=== PATIENT | male | born 1950 | race Caucasian/White ===

== ENCOUNTER 2017-05-05 12:54 | Inpatient (IN) | payer MEDICARE ==
[~2017-05-05] VITALS: Ht 177.8 cm; Wt 85.4 kg
[~2017-05-05 12:54] MED LIST: CEFT250T8; LORT7.5T3; NO CURRENT MEDS
[2017-05-09] MEDS ORDERED: METF500T PO ×2 (13:36)
[2017-05-09] MEDS ORDERED: METF1000 PO (13:36)
[2017-05-23] MEDS ORDERED: HYDR-3288 PO (06:59)
[2017-05-23] MEDS ORDERED: ZOLPIDEM TARTRATE 5 MG TAB PO PRN (07:00)
[2017-05-23] MEDS ORDERED: HYDROmorphone HCL PF 2 MG/ML VIAL IV PRN (07:00)
[2017-05-23] MEDS ORDERED: ENOX40P SQ (07:00)
[2017-05-23] MEDS ORDERED: diphenhydrAMINE HCL 50 MG/ML VIAL IV PRN (07:00)
[2017-05-23] MEDS ORDERED: SODIUM CHLORIDE 0.9% FLUSH 5 ML FLUSH IVF PRN (07:00)
[2017-05-23] MEDS ORDERED: Post-op Orders (for Pharmacy) MISC XX ONE (07:00)
[2017-05-23] MEDS ORDERED: BISACODYL 10 MG SUPP RECTAL PRN (07:00)
[2017-05-23] MEDS ORDERED: ACETAMINOPHEN/HYDROcodone 325 MG/7.5 MG TAB PO PRN (07:00)
[2017-05-23] MEDS ORDERED: ONDANSETRON HCL 4 MG/2 ML VIAL IVP PRN (07:00)
[2017-05-23] MEDS ORDERED: ASPI81CH37 CHEW (07:01)
[2017-05-23] MEDS ORDERED: METF500T PO ×2 (07:29)
[2017-05-23] MEDS ORDERED: LACTATED RINGER'S 1000 ML IV PRN (07:30)
[2017-05-23] MEDS ORDERED: POVIDONE IODINE 5% (ANTISEPSIS KIT) 4 APPLICATIONS EACH NARE PRN (07:30)
[2017-05-23] MEDS ORDERED: SODIUM CHLORID 0.9% 500 ML IV PRN (07:30)
[2017-05-23] MEDS ORDERED: CHLORHEXIDINE GLUCONATE 2 % 1 PACK (2 CLOTHS) TOPICAL PRN (07:30)
[2017-05-23] MEDS ORDERED: INSULIN HUMAN REGULAR 1,000 UNITS/10 ML VIAL SQ PRN (07:30)
[2017-05-23] MEDS ORDERED: DEXAMETHASONE SOD PHOS 4 MG/ML VIAL ONE (07:38)
[2017-05-23] MEDS ORDERED: VANCOMYCIN HCL 1000 MG VIAL ONE (07:39)
[2017-05-23] MEDS ORDERED: SODIUM CHLOR 0.9% 250 ML INJ 250 ML ONE (07:40)
[2017-05-23] MEDS ORDERED: DEXAMETHASONE SOD PHOS 20 MG/5 ML VIAL ONE (07:41)
[2017-05-23] MEDS ORDERED: CHLORHEXIDINE GLUCONATE 4% SOLN 120 ML BTL TOPICAL SCH (07:45)
[2017-05-23] MEDS ORDERED: ceFAZolin 2 GM PREMIX 50 ML IV SCH (07:45)
[2017-05-23] MEDS ORDERED: POVIDONE IODINE 7.5% SCRUB 118 ML BOTTLE TOPICAL SCH (07:45)
[2017-05-23] MEDS ORDERED: VANCOMYCIN 1000 MG/NS 250 ML (for <70 kg) IV SCH ×2 (07:45)
[2017-05-23] MEDS ORDERED: DEXAMETHASONE SOD PHOS 20 MG/5 ML VIAL IV ONE (08:00)
[2017-05-23] MEDS ORDERED: TRANEXAMIC PERI-ARTICULAR 3,000 MG/NS 100 ML P-ARTICULR ONE ×2 (08:00)
[2017-05-23] MEDS ORDERED: ROPIVACAINE PERI-ARTICULAR INJECTION. P-ARTICULR ONE ×5 (08:00)
[2017-05-23] MEDS ORDERED: TRANEXAMIC ACID IV ONE (08:00)
[2017-05-23] MEDS ORDERED: SODIUM CHLORIDE 0.9% IV ONE (08:00)
[2017-05-23] MEDS ORDERED: MIDAZOLAM HCL 2 MG/2 ML VIAL ONE (08:56)
[2017-05-23] MEDS: metFORMIN HCL 500 MG TAB PO SCH ×3 (09:00→18:00)
[2017-05-23] MEDS: SODIUM CHLORIDE 0.9% FLUSH 5 ML FLUSH IVF SCH ×2 (09:00→21:00)
[2017-05-23] MEDS ORDERED: GENTAMICIN SULFATE 80 MG/2 ML VIAL ONE (09:20)
[2017-05-23] MEDS ORDERED: *HYDROmorphone PF 1 MG VIAL PERIprocedural Use ONLY ONE ×2 (12:16→12:24)
[2017-05-23] MEDS ORDERED: DO NOT ADM ANY ANTICOAGULANT DRUGS PRN (12:30)
[2017-05-23] MEDS ORDERED: fentaNYL CITRATE 250 MCG/5 ML AMP ONE (12:32)
[2017-05-23] MEDS: SODIUM CHLOR 0.9% 1000 ML INJ 1,000 ML IV SCH ×2 (12:53→16:57)
[2017-05-23] MEDS ORDERED: ONDANSETRON HCL 4 MG/2 ML VIAL IV PUSH ONE (13:02)
[2017-05-23] MEDS ORDERED: PROPOFOL 200 MG/20 ML AMP IV ONE (13:02)
[2017-05-23] MEDS ORDERED: ePHEDrine/NS 25 MG/5 ML SYR IV ONE (13:02)
[2017-05-23] MEDS ORDERED: NEOSTIGMINE 3 MG/3 ML SYR IV ONE (13:02)
--- NOTE | 2017-05-23 13:08 | MP ---
cc: ANALIA JEAN BAPTISTE M.D. DATE OF SURGERY: 05/23/2017 PREOPERATIVE DIAGNOSIS Right knee osteoarthritis. POSTOPERATIVE DIAGNOSIS Right knee osteoarthritis. PROCEDURE Right total knee arthroplasty. SURGEON Dr. Analia Jean Baptiste. HOTEL OFFICE MANAGER Analia Caldwell PA-C. ANESTHESIA General with a femoral nerve adductor canal block. ESTIMATED BLOOD LOSS 50 cc. COMPLICATIONS None. TOURNIQUET TIME 42 minutes at 250 mmHg. IMPLANTS DePuy Attune size 7 posterior stabilized femoral component, size 8 eight rotating platform tibia baseplate, size 6 mm polyethylene tibial insert and size 38 patella. JUSTIFICATION This patient is a 67-year-old male with a history of severe end-stage degenerative osteoarthritis involving the right knee. He has severe disabling pain with standing, walking ambulation and weightbearing activities, even severe pain at rest. He has failed greater than three months of nonoperative conservative treatment to include medication, therapy, injections, ambulatory assisted aids, home exercise program and activity modification. X-rays of the right knee revealed severe end-stage osteoarthritis, [id number] joint space narrowing, subchondral sclerosis, subchondral cysts, osteophyte formation with deformity. The patient was counseled as to the thrombocythemia of a total knee arthroplasty. The risks were discussed which include but are not limited to anesthesia, bleeding, infection damage to nerves and blood vessels, pain, stiffness, failure of the components, blood clots, pulmonary embolism and even . The patient's pain is severe. He favored the benefits over the risks and did wish to proceed with surgery. PROCEDURE IN DETAIL A written consent was obtained. The patient was identified by name, taken to the operating room and placed supine on the operating table. General anesthesia was administered as well as two grams of IV Ancef and one gram of IV vancomycin. A well-padded tourniquet was placed on the right thigh. The right lower extremity was prepped and draped using isopropyl alcohol, Hibiclens solution and ChloraPrep solution. After a timeout was performed an Esmarch bandage was used to exsanguinate the right lower extremity and tourniquet inflated to 250 mmHg. A longitudinal incision was made over the anterior aspect of the right knee. A medial parapatellar arthrotomy was performed. The patella was everted and a patellar resection guide was used to resect 9 mm of patella. A size 38 mm trial guide was placed. Three drill holes were placed and a 38 mm trial fit well. Attention was turned to the femur where an intramedullary guide was placed and the distal femoral guide was set to remove 10 mm of distal femur 5 degrees off the anatomic valgus axis alignment. An oscillating saw was used to perform the distal femoral cut. Attention was turned to the tibia where an extramedullary tibial guide was set to remove 5 mm off the lowest portion of the medial tibial plateau. The tibia guide was pinned in place and a tibia cut was performed. The 5 mm spacer block showed full extension. Attention was turned back to the femur where an AP sizing block measured size 7. The anterior reference 3 degree external rotation guide was used to pin a size [address] The anterior, posterior and chamfer cuts were performed. A size 7 PCL box guide was pinned in place and the PCL was box cut with an oscillating saw. The medial and lateral meniscus remnants were removed as well as bone and soft tissue debris from the posterior portion of the knee. A size 8 tibia baseplate was pinned in place and the tibia was drilled and punched. Trial components were evaluated and final components cemented in place. With the current components the leg could achieve full extension at 0 degrees and flexion to 140. There was no evidence of tibial lift-off. Varus-valgus balance appeared appropriate and symmetric. The tourniquet was deflated. Bovie cautery was used for hemostasis. The surgical wound was thoroughly irrigated with sterile saline pulse lavage antibiotic-impregnated solution. The arthrotomy incision was closed with #1 Vicryl suture, the subcutaneous layer with 2-0 Vicryl suture and the skin was closed with Dermabond. Sterile dressing was applied. The patient tolerated the procedure well with no intraoperative complications noted. Analia Caldwell, physician cement tester assistant certified, was present during the entire procedure to include patient positioning and the procedure itself. The medical necessity of a physician cement tester assistant was indicated in this case due to the complexity of the procedure. He assisted with appropriate manipulation of the leg and also retraction of muscle, tendon, bone and neurovascular structures. He assisted with preparation of bone and also implantation of the prosthetic replacement. MD SAAD Molina/JIGNESH /11:42 AM /12:45 PM
--- NOTE | 2017-05-23 13:29 | RADRPT ---
EXAM DATE/TIME: 05/23/2017 12:41 [facility] COMPARISON: No previous studies available for comparison. INDICATIONS : Post op right total knee. MEDICAL HISTORY : None. SURGICAL HISTORY : None. ENCOUNTER: Initial ACUITY: 1 day PAIN SCORE: Non-responsive. LOCATION: Right knee. FINDINGS: Two view examination of the right knee demonstrates no evidence of fracture or dislocation. Right kne e arthroplasty. Post surgical changes. CONCLUSION: Right knee arthroplasty. Ronnell Caal MD on May 23, 2017 at 13:27 Board Certified Radiologist. This report was verified electronically.
--- NOTE | 2017-05-23 13:44 | RADRPT ---
EXAM DATE/TIME: 05/23/2017 12:47 [facility] COMPARISON: No previous studies available for comparison. INDICATIONS : Chest pain and shortness of breath. MEDICAL HISTORY : Hypercholesterolemia. Myocardial infarction. Diabetes mellitus type II. SURGICAL HISTORY : CABG. ENCOUNTER: Initial ACUITY: 1 day PAIN SCORE: 7/10 LOCATION: Bilateral chest FINDINGS: A single view of the chest demonstrates the lungs to be symmetrically aerated without evidence of mas s, infiltrate or effusion. The cardiomediastinal contours are unremarkable. Osseous structures are intact. Intact median sternotomy wires with coronary ostial lesions characteristic of prior CABG CONCLUSION: No acute cardiopulmonary process. Demetrius Kolb MD on May 23, 2017 at 13:41 Board Certified Radiologist. This report was verified electronically.
[2017-05-23 14:26] LABS: BASOPHIL % 0.1 % (0.0-2.0); EOSINOPHIL % 0.1 % (0.0-4.0); HEMATOCRIT 39.4 % (39.0-51.0); HEMO FLAGS DIFF FINAL; LYMPHOCYTE # 0.4 TH/MM3 (1.0-4.8); MEAN CORPUSCULAR HEMOGLOBIN 27.4 PG (27.0-34.0); MONO % 0.7 % (0.0-8.0); NEUT % 93.1 % (16.0-70.0); PLATELET COUNT 202 TH/MM3 (150-450); RED BLOOD COUNT 4.75 MIL/MM3 (4.50-5.90); RED CELL DISTRIBUTION WIDTH 16.4 % (11.6-17.2); WHITE BLOOD COUNT 7.5 TH/MM3 (4.0-11.0)
[2017-05-23 14:40] LABS: BICARBONATE 22.2 MEQ/L (21.0-32.0); POTASSIUM 4.2 MEQ/L (3.5-5.1)
--- NOTE | 2017-05-23 15:50 | PD.CONS ---
cc: Federico Vick MD HPI Service General Surgery Consult Requested By Dr. Cornell Reason for Consult Severe abdominal pain s/p RIGHT total knee arthroplasty Primary Care Physician Yunior Angulo, History of Present Illness This is a 67 year old male with a past medical history of myocardial infarction , hypercholesteremia, diverticulitis with colostomy placement, and diabetes mellitus. He had a total RIGHT knee arthroplasty today with Dr. Flores with no complications. In PACU the patient reported severe abdominal pain and was diaphoretic. Dr. Cornell evaluated the patient and on exam the patient had severe RIGHT upper quadrant abdominal pain. The patient states that he was in his usual state of health this morning. He had a bowel movement yesterday which was diarrhea. He has had diarrhea for the past several days. He has on and off again diarrhea. He denies any sick contacts. A General Surgery consultation has been requested for evaluation of severe abdominal pain. Review of Systems Constitutional: DENIES: Fatigue, Chills, Dizziness, Change in appetite Endocrine: DENIES: Polydipsia, Polyuria, Polyphagia Eyes: DENIES: Diplopia Ears, nose, mouth, throat: DENIES: Tinnitus, Hearing loss Respiratory: DENIES: Apneas Cardiovascular: DENIES: Chest pain Gastrointestinal: COMPLAINS OF: Abdominal pain (Post op ), Diarrhea, DENIES: Nausea, Vomiting Genitourinary: DENIES: Urinary frequency, Urgency Musculoskeletal: DENIES: Joint pain Integumentary: DENIES: Abnormal pigmentation Hematologic/lymphatic: DENIES: Bruising Immunologic/allergic: DENIES: Eczema Neurologic: DENIES: Headache, Localized weakness Psychiatric: DENIES: Mood changes, Depression, Hallucinations Past Family Social History Past Medical History Diabetes mellitus Hypercholesterolemia Myocardial infarction Diverticulitis Past Surgical History Exploratory laparotomy with colostomy placement and reversal Left total knee arthroplasty Right total knee arthroplasty (05/23/2017) CABG (appx 5 months ago) Reported Medications Metformin Aspirin Allergies: Coded Allergies: morphine (Unverified Allergy, Mild, NAUSEA,VOMITING, 05/23/17) diatrizoate meglumine (Unverified Adverse Reaction, Severe, Nausea/ Vomiting, 05/23/17) gadobenic acid (Unverified Adverse Reaction, Severe, Nausea/Vomiting, 05/23) gadodiamide (Unverified Adverse Reaction, Severe, Nausea/Vomiting, 05/23/17 ) gadoteridol (Unverified Adverse Reaction, Severe, Nausea/Vomiting, 05/23/17 ) iodixanol (Unverified Adverse Reaction, Severe, Nausea/Vomiting, 05/23/17) iohexol (Unverified Adverse Reaction, Severe, Nausea/Vomiting, 05/23/17) Active Ordered Medications Current Medications Medications (Trade) Dose Ordered Sig/Kathryn Route Start Time Stop Time Status Last Admin (Glucophage) 1,000 mg BIDPC PO 05/23/17 09:00 (Glucophage) 500 mg AC LUNCH PO 05/23/17 11:00 Sodium Chloride 1,000 ml @ 100 mls/hr Q10H IV 05/23/17 06:57 05/23/17 12:53 (NS Flush) 2 ml UNSCH PRN IVF 05/23/17 07:00 (NS Flush) 2 ml BID IVF 05/23/17 09:00 Cefazolin Sodium/ Dextrose 50 ml @ 100 mls/hr Q6H IV 05/23/17 14:00 05/24/17 02:29 (Lovenox Inj) 40 mg Q24H SQ 05/24/17 11:30 (Dilaudid Pf Inj) 1 mg Q3H PRN IV 05/23/17 07:00 ([place] 7.5-325 Mg) 1 tab Q4H PRN PO 05/23/17 07:00 ([place] 7.5-325 Mg) 2 tab Q4H PRN PO 05/23/17 07:00 (Theragran M Tab) 1 tab BID PO 05/24/17 21:00 07/23/17 20:59 (Zofran Inj) 4 mg Q6H PRN IVP 05/23/17 07:00 (Colace) 100 mg BID PO 05/24/17 21:00 (Ambien) 5 mg HS PRN PO 05/23/17 07:00 (Dulcolax Supp) 10 mg DAILY PRN RECTAL 05/23/17 07:00 (Benadryl Inj) 25 mg Q6H PRN IV 05/23/17 07:00 Lactated Ringer's 1,000 ml @ 30 mls/hr Q24H PRN IV 05/23/17 07:30 05/26/17 07:29 05/23/17 07:30 Sodium Chloride 500 ml @ 30 mls/hr [id number] PRN IV 05/23/17 07:30 05/26/17 07:29 (Betadine 5% Antisepsis Kit) 1 applic BOX CAR LOADER PRN EACH NARE 05/23/17 07:30 05/26/17 07:29 05/23/17 06:45 (Chlorhexidine 2% Cloth) 3 pack BOX CAR LOADER PRN TOPICAL 05/23/17 07:30 05/26/17 07:29 05/23/17 06:45 (NovoLIN R INJ) See Protocol Table ... BOX CAR LOADER PRN SQ 05/23/17 07:30 05/26/17 07:29 (Betadine 7.5% Scrub) 1 applic ONCE TOPICAL 05/23/17 07:45 05/26/17 07:44 (Hibiclens 4% Top Soln) 1 applic ONCE TOPICAL 05/23/17 07:45 05/26/17 07:44 Cefazolin Sodium/ Dextrose 50 ml @ 100 mls/hr BOX CAR LOADER IV 05/23/17 07:45 05/26/17 07:44 05/23/17 08:25 Vancomycin HCl 1000 mg/Sodium Chloride 250 ml @ 250 mls/hr BOX CAR LOADER IV 05/23/17 07:45 05/26/17 07:44 Miscellaneous Information ALL NURSING DEPARTME... UNSCH PRN .XX 05/23/17 12:30 05/24/17 12:29 Family History Noncontributory Social History Denies tobacco use Denies EtOH use Denies illicit drug use Physical Exam Vital Signs Vital Signs Date Time Temp Pulse Resp B/P (MAP) Pulse Ox O2 Delivery O2 Flow Rate FiO2 05/23/17 15:00 87 10 111/57 (75) 98 05/23/17 14:30 90 15 115/55 (75) 96 05/23/17 14:15 91 8 131/62 (85) 96 05/23/17 14:00 92 8 117/59 (78) 96 05/23/17 13:45 100 9 129/68 (88) 96 05/23/17 13:30 97 11 117/58 (77) 96 05/23/17 13:15 93 13 118/57 (77) 96 05/23/17 13:00 93 10 135/59 (84) 94 05/23/17 12:45 92 10 144/67 (92) 94 05/23/17 12:30 90 10 161/64 (96) 95 Nasal Cannula 3 05/23/17 12:18 98.4 91 28 173/92 (119) 94 Simple Mask 6 Physical Exam GENERAL: 67 year old male seen in PACU resting comfortably in bed. SKIN: Warm and dry. HEAD: Atraumatic. Normocephalic. EYES: Pupils equal and round. No scleral icterus. No injection or drainage. ENT: No nasal bleeding or discharge. Mucous membranes pink and moist. NECK: Trachea midline. CARDIOVASCULAR: Regular rate and rhythm. RESPIRATORY: No accessory muscle use. Clear to auscultation. Breath sounds equal bilaterally. GASTROINTESTINAL: Abdomen soft, non-tender, nondistended. Large well healed midline incision from exploratory laparotomy; LEFT lower abdominal incision well healed from prior colostomy. MUSCULOSKELETAL: Extremities without clubbing or cyanosis. LEFT knee well healed scar; RIGHT knee with bandage in place. NEUROLOGICAL: Awake and alert. No obvious cranial nerve deficits. Motor grossly within normal limits. Five out of 5 muscle strength in the arms and legs. Normal speech. PSYCHIATRIC: Appropriate mood and affect; insight and judgment normal. Laboratory Laboratory Tests Test 05/23/17 14:09 White Blood Count 7.5 Red Blood Count 4.75 Hemoglobin 13.0 Hematocrit 39.4 Mean Corpuscular Volume 83.0 Mean Corpuscular Hemoglobin 27.4 Mean Corpuscular Hemoglobin Concent 33.0 Red Cell Distribution Width 16.4 Platelet Count 202 Mean Platelet Volume 8.8 Neutrophils (%) (Auto) 93.1 Lymphocytes (%) (Auto) 6.0 Monocytes (%) (Auto) 0.7 Eosinophils (%) (Auto) 0.1 Basophils (%) (Auto) 0.1 Neutrophils # (Auto) 7.0 Lymphocytes # (Auto) 0.4 Monocytes # (Auto) 0.1 Eosinophils # (Auto) 0.0 Basophils # (Auto) 0.0 CBC Comment DIFF FINAL Differential Comment Blood Urea Nitrogen 21 Creatinine 0.77 Random Glucose 226 Calcium Level 8.5 Sodium Level 137 Potassium Level 4.2 Chloride Level 103 Carbon Dioxide Level 22.2 Anion Gap 12 Estimat Glomerular Filtration Rate 100 Assessment and Plan Assessment and Plan 67 year old male POD0 from RIGHT total knee arthroplasty; severe abdominal pain in PACU -Labs unremarkable -Abdominal exam benign -Okay for diet per Orthopedics usual post op orders -Monitor vital signs closely -Labs in AM -Non operative treatment at this time -We will continue to follow; Thank you for this consult Discussed Condition With Dr. Nicanor Zepeda FRUIT CULLER RN Mr. German Attending Statement patient seen and examined pt pain much improved non tachycardia, tolerating liquids will follow with abdominal exams Attestation The exam, history, and the medical decision-making described in the above note were completed with the assistance of the mid-level provider. I reviewed and agree with the findings presented. I attest that I had a [id number] encounter with the patient on the same day, and personally performed and documented my assessment and findings in the medical record. Maria Elena Henley May 23, 2017 15:49 Federico Vick MD Jun 07, 2017 22:01
[2017-05-23] MEDS: ceFAZolin 2 GM PREMIX 50 ML IV SCH ×2 (18:00→23:50)
--- NOTE | 2017-05-23 18:21 | HHI.PR ---
Objective Objective Results - Vital Signs Date Time Temp Pulse Resp B/P (MAP) Pulse Ox O2 Delivery O2 Flow Rate FiO2 05/23/17 17:00 94 17 124/61 (82) 97 05/23/17 16:00 99 17 133/63 (86) 97 05/23/17 15:00 87 10 111/57 (75) 98 05/23/17 14:30 90 15 115/55 (75) 96 05/23/17 14:15 91 8 131/62 (85) 96 05/23/17 14:00 92 8 117/59 (78) 96 05/23/17 13:45 100 9 129/68 (88) 96 05/23/17 13:30 97 11 117/58 (77) 96 05/23/17 13:15 93 13 118/57 (77) 96 05/23/17 13:00 93 10 135/59 (84) 94 05/23/17 12:45 92 10 144/67 (92) 94 05/23/17 12:30 90 10 161/64 (96) 95 Nasal Cannula 3 05/23/17 12:18 98.4 91 28 173/92 (119) 94 Simple Mask 6 I/O 05/22/17 05/22/17 05/22/17 05/23/17 05/23/17 05/23/17 07:00 15:00 23:00 07:00 15:00 23:00 Intake Total 1060 ml 1290 ml Output Total 350 ml Balance 710 ml 1290 ml Intake Oral 798 ml IV Total 1060 ml 492 ml Output Urine Total 250 ml Estimated Blood Loss 100 ml (Bonnie Dowling) Result Diagram: 05/23/17 1409 05/23/17 1409 Physical Exam Physical Exam [id number] DM 2 with Metformin BASILIO, mild dehydration OA hx diverticulitis/bowel perf, colostomy and reversal S/P rt. TKA (Bonnie Dowling) A/P Assessment and Plan pt is seen & examined d/w PT d/w bonnie thanks for the consult will f/u (Faby Brush MD) Bonnie Dowling May 23, 2017 18:21 Faby Brush MD May 23, 2017 18:28
[2017-05-23] MEDS ORDERED: GLUCAGON 1 MG/ML VIAL OTHER PRN (18:30)
[2017-05-23] MEDS ORDERED: DEXTROSE 50% IN WATER 50 ML VIAL(D50) IV PRN (18:30)
[2017-05-23 19:00] VITALS: BP 108/56; PULSE 104; RESP 17; TEMP 99; O2SAT 97
[2017-05-23] MEDS: chlorproMAZINE HCL 25 MG TAB PO PRN (21:24)
[2017-05-23] MEDS: ACETAMINOPHEN/HYDROcodone 325 MG/7.5 MG TAB PO PRN (21:25)
[2017-05-23] MEDS: INSULIN ASPART SUPPLEMENTAL SCALE SQ SCH (22:57)
[2017-05-24] VITALS (8 sets, daily range): BP systolic 94–140; BP diastolic 50–68; PULSE 78–99; RESP 16–18; TEMP 96.8–98.8; O2SAT 95–100
[2017-05-24] MEDS: SODIUM CHLOR 0.9% 1000 ML INJ 1,000 ML IV SCH ×3 (01:28→22:57)
[2017-05-24] MEDS: ceFAZolin 2 GM PREMIX 50 ML IV SCH (04:21)
[2017-05-24] MEDS: INSULIN ASPART SUPPLEMENTAL SCALE SQ SCH ×4 (06:33→21:00)
[2017-05-24 07:53] LABS: HEMATOCRIT 33.8 % (39.0-51.0); MEAN CELL VOLUME 82.5 FL (80.0-100.0); MEAN CORPUSCULAR HGB CONC 32.8 % (32.0-36.0); PLATELET COUNT 181 TH/MM3 (150-450); RED CELL DISTRIBUTION WIDTH 16.4 % (11.6-17.2); REVIEW FLAG FINAL; WHITE BLOOD COUNT 8.5 TH/MM3 (4.0-11.0)
[2017-05-24 08:15] LABS: BICARBONATE 27.5 MEQ/L (21.0-32.0); POTASSIUM 4.1 MEQ/L (3.5-5.1)
--- NOTE | 2017-05-24 08:28 | PD.ORT.PN ---
Subjective Post Op Day #: 1 Subjective Remarks pain under control. denies abdominal pain, sob, cp. Objective Vitals Vital Signs Date Time Temp Pulse Resp B/P (MAP) Pulse Ox O2 Delivery O2 Flow Rate FiO2 05/24/17 06:42 Room Air 05/24/17 04:00 96.8 79 17 101/58 (72) 100 05/24/17 00:00 97.7 99 16 94/55 (68) 95 05/23/17 19:16 Nasal Cannula 2.00 05/23/17 19:00 99.0 104 17 108/56 (73) 97 05/23/17 18:00 98.5 87 16 114/59 (77) 97 Nasal Cannula 2 05/23/17 17:00 94 17 124/61 (82) 97 05/23/17 16:00 99 17 133/63 (86) 97 05/23/17 15:00 87 10 111/57 (75) 98 05/23/17 14:30 90 15 115/55 (75) 96 05/23/17 14:15 91 8 131/62 (85) 96 05/23/17 14:00 92 8 117/59 (78) 96 05/23/17 13:45 100 9 129/68 (88) 96 05/23/17 13:30 97 11 117/58 (77) 96 05/23/17 13:15 93 13 118/57 (77) 96 05/23/17 13:00 93 10 135/59 (84) 94 05/23/17 12:45 92 10 144/67 (92) 94 05/23/17 12:30 90 10 161/64 (96) 95 Nasal Cannula 3 05/23/17 12:18 98.4 91 28 173/92 (119) 94 Simple Mask 6 I/O 05/23/17 05/23/17 05/23/17 05/24/17 05/24/17 05/24/17 07:00 15:00 23:00 07:00 15:00 23:00 Intake Total 1060 ml 2010 ml 550 ml Output Total 350 ml 450 ml Balance 710 ml 1560 ml 550 ml Intake Oral 1518 ml IV Total 1060 ml 492 ml 550 ml Output Urine Total 250 ml 450 ml Estimated Blood Loss 100 ml # Bowel Movements 0 Result Diagram: 05/24/1770405/24/17704 Objective Remarks in bed, nad dressing c/d/i neg homans nvi Assessment & Plan Ortho Post Op Day #: 1 Problem List: Assessment and Plan s/p R TKA wbat daily dressing changes lovenox d/c planning to snf 3001 signed rx in chart post-op abdominal pain - gen surg was consulted and is following currently no abdominal pain f/up dr. vera 2 weeks Angelito Caldwell May 24, 2017 08:28
--- NOTE | 2017-05-24 08:30 | HHI.DCPOC ---
Discharge Care Plan Diagnosis: (1) Primary localized osteoarthrosis, lower leg Your Health Problems Are: Difficulty with ADL Goals to Promote Your Health * To prevent worsening of your condition and complications * To maintain your health at the optimal level Directions to Meet Your Goals Take your medications as prescribed Follow your dietary instruction Follow activity as directed Keep your appointments as scheduled Take your immunizations and boosters as scheduled If your symptoms worsen call your PCP, if no PCP go to Urgent Care Center or Emergency Room Smoking is Dangerous to Your Health. Avoid second hand smoke Call the 24-hour hour crisis hotline for domestic abuse at Angelito Caldwell May 24, 2017 08:30
--- NOTE | 2017-05-24 08:30 | MB ---
cc: CRISTIAN DOMÍNGUEZ MD DATE OF 1950 DATE OF CONSULTATION 05/23/2017 REASON FOR CONSULTATION Medical management. HISTORY OF PRESENT ILLNESS This is a pleasant 67-year-old male with a significant history of right knee osteoarthritis. He was seen per ortho on an outpatient basis and received multiple treatment regimens which did not completely alleviate his pain. He decided to electively do a right total knee replacement. He is currently in the postanesthesia care unit setting. He is drowsy but will arouse and understands simple conversation right now. PAST MEDICAL HISTORY 1. Heart attack. 2. Hyperlipidemia. 3. Diverticulitis with colostomy placement. 4. Diabetes mellitus type 2. The patient is on p.o. metformin. 5. He is currently status post right total knee arthroplasty with Dr. Flores today. 6. Kidney stones. PAST SURGICAL HISTORY 1. Colostomy for 8 years and then revision to remove. 2. Diverticulitis with bowel perforation. 3. He had four abdominal surgeries around his complications of the bowel perforation and colostomy. 4. Left total knee arthroplasty. 5. CABG was 5 months ago. ALLERGIES MORPHINE, IOHEXOL, IODIXANOL, GADOTERIDOL, GADODIAMIDE, GADOBENIC ACID, DIATRIZOATE MEGLUMINE. MEDICATIONS 1. Aspirin. 2. Pain pills. 3. Hydrocodone. 4. Metformin. SOCIAL HISTORY The patient recently , currently lives alone. Denies any alcohol, tobacco or illicit drugs. REVIEW OF SYSTEMS Limited due to the patient's mild drowsiness but currently denies any pain. No shortness of breath. PHYSICAL EXAMINATION VITAL SIGNS: Temperature is 98.4, pulse 94, respirations 17, blood pressure 124/61, O2 sat 97. GENERAL: Well-nourished white male looks to be his stated age resting in the bed. Eyes are closed. Fair historian. SKIN: [place], warm and dry. HEENT: Atraumatic, normocephalic. Mucous membranes are dry. No scleral icterus. NECK: Is supple. CARDIOVASCULAR: S1-S2. Rhythm is regular and less than 100. No audible murmur, rub or gallop. LUNGS: Sounds are low volumes but essentially clear. ABDOMEN: Round, soft, nontender, nondistended. MUSCULOSKELETAL: Moves his upper extremities with purpose. Moves the left knee on command. He can wiggle the toes on his right foot. Otherwise he is currently immobilized status post his right total knee arthroplasty. NEUROLOGIC: He is drowsy but responds to simple stimuli and simple conversation. PSYCHIATRIC: Appropriate mood and affect. DIAGNOSTIC DATA WBC count 7.5, RBC 4.75, hemoglobin 13, hematocrit 39.4, platelet count 202. Neutrophil absolute count 93.1, lymphocyte count 6. Chemistry, sodium 137, potassium 4.2, chloride 103, carbon dioxide 22.2, BUN 21, creatinine 0.77, glucose 226. Calcium 8.5. IMAGING Shows normal chest x-ray. And knee x-ray no fracture or dislocation, post surgical changes. ASSESSMENT/PLAN 1. The patient is status post total right knee replacement. 2. Diabetes type 2 on p.o. metformin. 3. History of cardiovascular disease. 4. History of colostomy and diverticulosis with bowel perf. 5. Acute kidney injury with mild dehydration. 6. Anemia, mild. Our plan is to monitor for his medical management. e will order labs in the morning. We will monitor Accu-Cheks a.c. and at bedtime with sliding scale. Please note that general surgery has been consulted to follow due to his medical history with his abdomen. Currently his bowel sounds are soft and active and his abdomen is soft, nontender. Denies any problems. He will get his routine postoperative care per orthopedic team as well as his pain management. We will reconcile his home meds. DVT prophylaxis. PUD prophylaxis. We will follow for his multiple medical needs. Thank you much for this consult. Dictated by: BRIDGETTE Boykin MD JOZEF Hall/LYNNE /6:10 PM /8:28 AM
[2017-05-24] MEDS ORDERED: CPMMACHINE (08:35)
[2017-05-24] MEDS ORDERED: WALKER WHEELS/F1 MIS (08:35)
[2017-05-24] MEDS: SODIUM CHLORIDE 0.9% FLUSH 5 ML FLUSH IVF SCH ×2 (09:13→20:27)
[2017-05-24] MEDS: metFORMIN HCL 500 MG TAB PO SCH ×3 (09:19→18:43)
[2017-05-24] MEDS: ENOXAPARIN SODIUM 40 MG/0.4 ML SYRINGE SQ SCH (11:07)
--- NOTE | 2017-05-24 11:29 | HHI.PR ---
Subjective Subjective Notes Resting in bed Tolerated breakfast Objective Vitals/I&O Vital Signs Date Time Temp Pulse Resp B/P (MAP) Pulse Ox O2 Delivery O2 Flow Rate FiO2 05/24/17 11:00 98 21 05/24/17 08:00 96.8 81 16 117/68 (84) 05/24/17 06:42 Room Air 05/23/17 19:16 2.00 Labs Laboratory Tests Test 05/23/17 14:09 05/24/17 07:05 White Blood Count 7.5 8.5 Red Blood Count 4.75 4.10 Hemoglobin 13.0 11.1 Hematocrit 39.4 33.8 Mean Corpuscular Volume 83.0 82.5 Mean Corpuscular Hemoglobin 27.4 27.0 Mean Corpuscular Hemoglobin Concent 33.0 32.8 Red Cell Distribution Width 16.4 16.4 Platelet Count 202 181 Mean Platelet Volume 8.8 8.7 Neutrophils (%) (Auto) 93.1 Lymphocytes (%) (Auto) 6.0 Monocytes (%) (Auto) 0.7 Eosinophils (%) (Auto) 0.1 Basophils (%) (Auto) 0.1 Neutrophils # (Auto) 7.0 Lymphocytes # (Auto) 0.4 Monocytes # (Auto) 0.1 Eosinophils # (Auto) 0.0 Basophils # (Auto) 0.0 CBC Comment DIFF FINAL Differential Comment Blood Urea Nitrogen 21 17 Creatinine 0.77 0.74 Random Glucose 226 125 Calcium Level 8.5 8.3 Sodium Level 137 144 Potassium Level 4.2 4.1 Chloride Level 103 108 Carbon Dioxide Level 22.2 27.5 Anion Gap 12 9 Estimat Glomerular Filtration Rate 100 105 Cardiovascular: Regular Lungs: Clear Abdomen: Non-distended, Non-tender Extremities: Other (RIGHT knee in brace and elevated ) A/P Assessment and Plan 67 year old male POD1 total RIGHT knee arthroplasty; Abdominal pain PACU -Tolerating regular diet -Abdominal exam benign -VSS -WBC normal -No surgical indication at this time; GS will sign off -Please call with questions Attending Statement patient seen at bedside abdomen benign wbc normal unlikely for abdominal pathology will s/o Attestation The exam, history, and the medical decision-making described in the above note were completed with the assistance of the mid-level provider. I reviewed and agree with the findings presented. I attest that I had a [id number] encounter with the patient on the same day, and personally performed and documented my assessment and findings in the medical record. Maria Elena Henley May 24, 2017 11:29 Federico Vick MD May 26, 2017 21:48
--- NOTE | 2017-05-24 12:20 | HHI.PR ---
Subjective Subjective Remarks Right knee pain minimal Denies any abdominal pain, indicates that he does not recall complaining of pain , he thinks it may have been due to anesthesia and he got confused No nausea, no vomiting Had bowel movement before going for surgery No fever No chest pain No shortness of breath Review of Systems Constitutional Constitutional Remarks 12 point review of systems completed, negative except as noted above Vitals/Results Vital Signs Vital Signs Date Time Temp Pulse Resp B/P (MAP) Pulse Ox O2 Delivery O2 Flow Rate FiO2 05/24/17 11:00 98 21 05/24/17 08:00 96.8 81 16 117/68 (84) 98 05/24/17 06:42 Room Air 05/24/17 04:00 96.8 79 17 101/58 (72) 100 05/24/17 00:00 97.7 99 16 94/55 (68) 95 05/23/17 19:16 Nasal Cannula 2.00 05/23/17 19:00 99.0 104 17 108/56 (73) 97 05/23/17 18:00 98.5 87 16 114/59 (77) 97 Nasal Cannula 2 05/23/17 17:00 94 17 124/61 (82) 97 05/23/17 16:00 99 17 133/63 (86) 97 05/23/17 15:00 87 10 111/57 (75) 98 05/23/17 14:30 90 15 115/55 (75) 96 05/23/17 14:15 91 8 131/62 (85) 96 05/23/17 14:00 92 8 117/59 (78) 96 05/23/17 13:45 100 9 129/68 (88) 96 05/23/17 13:30 97 11 117/58 (77) 96 05/23/17 13:15 93 13 118/57 (77) 96 05/23/17 13:00 93 10 135/59 (84) 94 05/23/17 12:45 92 10 144/67 (92) 94 05/23/17 12:30 90 10 161/64 (96) 95 Nasal Cannula 3 05/23/17 12:18 98.4 91 28 173/92 (119) 94 Simple Mask 6 CBC/BMP: 05/24/17 0705 05/24/17 0705 Lab Results Laboratory Tests Test 05/23/17 14:09 05/24/17 07:05 White Blood Count 7.5 TH/MM3 8.5 TH/MM3 Red Blood Count 4.75 MIL/MM3 4.10 MIL/MM3 Hemoglobin 13.0 GM/DL 11.1 GM/DL Hematocrit 39.4 % 33.8 % Mean Corpuscular Volume 83.0 FL 82.5 FL Mean Corpuscular Hemoglobin 27.4 PG 27.0 PG Mean Corpuscular Hemoglobin Concent 33.0 % 32.8 % Red Cell Distribution Width 16.4 % 16.4 % Platelet Count 202 TH/MM3 181 TH/MM3 Mean Platelet Volume 8.8 FL 8.7 FL Neutrophils (%) (Auto) 93.1 % Lymphocytes (%) (Auto) 6.0 % Monocytes (%) (Auto) 0.7 % Eosinophils (%) (Auto) 0.1 % Basophils (%) (Auto) 0.1 % Neutrophils # (Auto) 7.0 TH/MM3 Lymphocytes # (Auto) 0.4 TH/MM3 Monocytes # (Auto) 0.1 TH/MM3 Eosinophils # (Auto) 0.0 TH/MM3 Basophils # (Auto) 0.0 TH/MM3 CBC Comment DIFF FINAL Differential Comment Blood Urea Nitrogen 21 MG/DL 17 MG/DL Creatinine 0.77 MG/DL 0.74 MG/DL Random Glucose 226 MG/DL 125 MG/DL Calcium Level 8.5 MG/DL 8.3 MG/DL Sodium Level 137 MEQ/L 144 MEQ/L Potassium Level 4.2 MEQ/L 4.1 MEQ/L Chloride Level 103 MEQ/L 108 MEQ/L Carbon Dioxide Level 22.2 MEQ/L 27.5 MEQ/L Anion Gap 12 MEQ/L 9 MEQ/L Estimat Glomerular Filtration Rate 100 ML/MIN 105 ML/MIN Physical Exam General General Appearance: Well Developed, Well Nourished, No Acute Distress, Comfortable Eyes Eye Exam: Pupils Equal, Pupils Reactive Ears & Nose Ears & Nose Exam: Nasal Mucosa [place] Throat Throat Exam: Oral Mucosa [place] & Moist Neck Neck Exam: Neck Supple, Trachea Midline Pulmonary Resp Exam: Clear Bilaterally Cardiology CV Exam: Regular, Good Perfusion Gastrointestinal/Abdomen GI Exam: Soft, Non-Tender, Bowel Sounds Present, Non-Distended Musculoskeletal MS Exam: Joints Intact MS Remarks Right knee with dressing dry and intact Integumentary Skin Exam: Warm, Dry Extremeties Extremities Exam: No Edema, Pedal Pulses Palpable Neurologic Neuro Exam: Alert, Awake, Oriented, Speech Clear, Family And Consumer Science Professor Equal Psychiatric Psych Exam: Appropriate Responses VTE Prophylaxis VTE Prophylaxis Device: SCDs VTE Prophylaxis Meds: Lovenox Assessment/Plan Assessment/Plan 1. OA, status post total right knee replacement. 2. Diabetes type 2 on p.o. metformin. 3. History of cardiovascular disease. 4. History of colostomy and diverticulosis with bowel perf. 5. Acute kidney injury with mild dehydration. 6. Anemia, mild. 7. Abdominal pain, now resolved Plan Continue with postoperative orthopedic care Physical therapy Pain management Lovenox for DVT prophylaxis Bowel management Abdominal pain in PACU, patient does not recall Surgery has evaluated, benign findings, has signed off Continue with Accu-Cheks before meals and at bedtime and insulin therapy as needed H&H stable Lovenox for DVT prophylaxis Discharge planning, patient will be going to rehabilitation D/W RN D/W Dr. Brush D/W pt This patient was seen by myself and Dr. Brush, this note is written on his behalf. Harriett Collier May 24, 2017 12:20
[2017-05-24] MEDS: ACETAMINOPHEN/HYDROcodone 325 MG/7.5 MG TAB PO PRN ×3 (13:23→20:27)
--- NOTE | 2017-05-24 14:19 | EKG ---
Date Performed: 05/23/2017 Time Performed: 12:22:47 PTAGE: 67 years EKG: Sinus rhythm BORDERLINE LEFT AXIS DEVIATION LOW QRS VOLTAGE IN PRECORDIAL LEADS PATTERN CONSISTENT WITH PULMONARY DISEASE NONSPECIFIC T-WAVE ABNORMALITY ABNORMAL ECG Compared to PREVIOUS TRACING , the patient has developed a delayed R-wave transition. There has been some variation of nonspecific ST-T wave changes. Clinical correlation is advised. PREVIOUS TRACIN 04/03/2007 10.42 DOCTOR: Ruthie Onofre Interpretating Date/Time 05/24/2017 14:18:01
[2017-05-24] MEDS: MULTIVITAMINS/MINERALS THERAPEUTIC TAB PO SCH (20:26)
[2017-05-24] MEDS: DOCUSATE SODIUM 100 MG CAP PO SCH (20:26)
[2017-05-24] MEDS: chlorproMAZINE HCL 25 MG TAB PO PRN (20:26)
[2017-05-25] MEDS: ACETAMINOPHEN/HYDROcodone 325 MG/7.5 MG TAB PO PRN ×3 (03:11→18:17)
[2017-05-25 03:53] VITALS: BP 172/75; PULSE 116; RESP 18; TEMP 98.4; O2SAT 95
[2017-05-25] MEDS: INSULIN ASPART SUPPLEMENTAL SCALE SQ SCH ×4 (06:23→21:10)
--- NOTE | 2017-05-25 07:56 | PD.ORT.PN ---
Subjective Post Op Day #: 2 Subjective Remarks pain under control. denies abdominal pain, sob, cp. does not remember having abdominal pain post-op. Objective Vitals Vital Signs Date Time Temp Pulse Resp B/P (MAP) Pulse Ox O2 Delivery O2 Flow Rate FiO2 05/25/17 03:53 98.4 116 18 172/75 (107) 95 05/24/17 23:10 98.8 87 18 140/67 (91) 96 05/24/17 19:04 98.0 78 18 107/50 (69) 96 05/24/17 18:51 Room Air 05/24/17 16:30 98.0 90 16 107/56 (73) 95 05/24/17 14:53 Room Air 05/24/17 12:14 97.6 84 16 125/61 (82) 96 05/24/17 11:00 98 21 05/24/17 08:00 96.8 81 16 117/68 (84) 98 I/O 05/24/17 05/24/17 05/24/17 05/25/17 05/25/17 05/25/17 07:00 15:00 23:00 07:00 15:00 23:00 Intake Total 550 ml 480 ml 480 ml 360 ml Output Total 1100 ml 300 ml Balance 550 ml -620 ml 480 ml 60 ml Intake Oral 480 ml 480 ml 360 ml IV Total 550 ml Output Urine Total 1100 ml 300 ml # Voids 4 2 # Bowel Movements 0 0 0 Result Diagram: 05/24/17 0705 05/24/17 0705 Objective Remarks in bed, nad incision no erythema, no drainage neg homans nvi Assessment & Plan Ortho Post Op Day #: 2 Problem List: Assessment and Plan s/p R TKA wbat daily dressing changes lovenox d/c planning to snf 3008 signed rx in chart post-op abdominal pain - gen surg was consulted and has signed off - neg findings currently no abdominal pain f/up dr. vera 2 weeks Angelito Caldwell May 25, 2017 07:55
[2017-05-25 08:00] VITALS: BP_SYST 147; BP_DIAS 71; BP_DIAS 76; PULSE 105; RESP 16; TEMP 97.6; O2SAT 96
[2017-05-25 08:14] LABS: HEMATOCRIT 34.9 % (39.0-51.0); MEAN CELL VOLUME 83.7 FL (80.0-100.0); MEAN CORPUSCULAR HEMOGLOBIN 27.8 PG (27.0-34.0); MEAN CORPUSCULAR HGB CONC 33.2 % (32.0-36.0); PLATELET COUNT 162 TH/MM3 (150-450); RED BLOOD COUNT 4.16 MIL/MM3 (4.50-5.90); REVIEW FLAG FINAL; WHITE BLOOD COUNT 6.9 TH/MM3 (4.0-11.0)
[2017-05-25 08:39] LABS: BICARBONATE 27.5 MEQ/L (21.0-32.0); POTASSIUM 3.7 MEQ/L (3.5-5.1)
[2017-05-25] MEDS: SODIUM CHLOR 0.9% 1000 ML INJ 1,000 ML IV SCH ×2 (08:57→18:57)
[2017-05-25] MEDS: SODIUM CHLORIDE 0.9% FLUSH 5 ML FLUSH IVF SCH ×2 (09:00→21:10)
[2017-05-25] MEDS: metFORMIN HCL 500 MG TAB PO SCH ×3 (09:19→18:00)
[2017-05-25] MEDS: MULTIVITAMINS/MINERALS THERAPEUTIC TAB PO SCH ×2 (09:19→21:09)
[2017-05-25] MEDS: DOCUSATE SODIUM 100 MG CAP PO SCH ×2 (09:20→21:09)
[2017-05-25] MEDS: BISACODYL EC 5 MG TABEC PO SCH ×2 (09:20→21:09)
[2017-05-25] MEDS: MAGNESIUM HYDROXIDE SUSP 30 ML CUP PO SCH ×2 (09:20→21:09)
[2017-05-25] MEDS: POLYETHYLENE GLYCOL 17 GM PKG PO SCH (09:20)
[2017-05-25 12:00] VITALS: BP 108/60; PULSE 100; RESP 16; TEMP 97.7; O2SAT 95
[2017-05-25] MEDS: ENOXAPARIN SODIUM 40 MG/0.4 ML SYRINGE SQ SCH (12:43)
--- NOTE | 2017-05-25 13:20 | HHI.PR ---
Subjective Subjective Remarks attempting to put pants by himself, instructed to call staff assisted to sit down passing gas, no bm pain well controlled no abd pain no n/v no fever Review of Systems Constitutional Constitutional Remarks 12 point review of systems completed, negative except as noted above Vitals/Results Intake & Output 05/25/17 05/25/17 05/26/17 15:00 23:00 07:00 Intake Total 360 ml Output Total 300 ml Balance 60 ml Intake Oral 360 ml Output Urine Total 300 ml # Voids 6 # Bowel Movements 0 Vital Signs Vital Signs Date Time Temp Pulse Resp B/P (MAP) Pulse Ox O2 Delivery O2 Flow Rate FiO2 05/25/17 12:00 97.7 100 16 108/60 (76) 95 05/25/17 08:00 97.6 105 16 147/71 (96) 96 05/25/17 08:00 97.6 105 16 147/76 (99) 96 05/25/17 03:53 98.4 116 18 172/75 (107) 95 05/24/17 23:10 98.8 87 18 140/67 (91) 96 05/24/17 19:04 98.0 78 18 107/50 (69) 96 05/24/17 18:51 Room Air 05/24/17 16:30 98.0 90 16 107/56 (73) 95 05/24/17 14:53 Room Air CBC/BMP: 05/25/17 0730 05/25/17 0730 Lab Results Laboratory Tests Test 05/25/17 07:30 White Blood Count 6.9 TH/MM3 Red Blood Count 4.16 MIL/MM3 Hemoglobin 11.6 GM/DL Hematocrit 34.9 % Mean Corpuscular Volume 83.7 FL Mean Corpuscular Hemoglobin 27.8 PG Mean Corpuscular Hemoglobin Concent 33.2 % Red Cell Distribution Width 16.0 % Platelet Count 162 TH/MM3 Mean Platelet Volume 9.1 FL Blood Urea Nitrogen 13 MG/DL Creatinine 0.59 MG/DL Random Glucose 114 MG/DL Calcium Level 8.7 MG/DL Sodium Level 139 MEQ/L Potassium Level 3.7 MEQ/L Chloride Level 105 MEQ/L Carbon Dioxide Level 27.5 MEQ/L Anion Gap 7 MEQ/L Estimat Glomerular Filtration Rate 137 ML/MIN Physical Exam General General Appearance: Well Developed, Well Nourished, No Acute Distress, Comfortable Eyes Eye Exam: Pupils Equal, Pupils Reactive Ears & Nose Ears & Nose Exam: Nasal Mucosa [place] Throat Throat Exam: Oral Mucosa [place] & Moist Neck Neck Exam: Neck Supple, Trachea Midline Pulmonary Resp Exam: Clear Bilaterally Cardiology CV Exam: Good Perfusion, Tachycardia Gastrointestinal/Abdomen GI Exam: Soft, Non-Tender, Bowel Sounds Present, Non-Distended Musculoskeletal MS Exam: Joints Intact MS Remarks Right knee with dressing dry and intact Integumentary Skin Exam: Warm, Dry Extremeties Extremities Exam: No Edema, Pedal Pulses Palpable Neurologic Neuro Exam: Alert, Awake, Oriented, Speech Clear, Germ Drier Equal Psychiatric Psych Exam: Appropriate Responses VTE Prophylaxis VTE Prophylaxis Device: SCDs VTE Prophylaxis Meds: Lovenox Assessment/Plan Assessment/Plan 1. OA, status post total right knee replacement. 2. Diabetes type 2 on p.o. metformin. 3. History of cardiovascular disease. 4. History of colostomy and diverticulosis with bowel perf. 5. Acute kidney injury with mild dehydration. 6. Anemia, mild. 7. Abdominal pain, now resolved Plan Continue with postoperative orthopedic care Physical therapy Pain management Lovenox for DVT prophylaxis Bowel management Abdominal pain in PACU, patient does not recall Surgery has evaluated, benign findings, has signed off Continue with Accu-Cheks before meals and at bedtime and insulin therapy as needed H&H stable Lovenox for DVT prophylaxis Discharge planning, patient will be going to rehabilitation on D/W RN D/W Dr. Brush D/W pt This patient was seen by myself and Dr. Brush, this note is written on his behalf. Harriett Collier May 25, 2017 13:20
[2017-05-25 16:00] VITALS: BP 156/78; PULSE 115; RESP 16; TEMP 99; O2SAT 97
[2017-05-25 20:25] VITALS: BP 136/68; PULSE 115; RESP 18; TEMP 100; O2SAT 95
[2017-05-26] VITALS: BP 144/69; PULSE 79; RESP 18; TEMP 98.9; O2SAT 98
[2017-05-26] MEDS: ACETAMINOPHEN/HYDROcodone 325 MG/7.5 MG TAB PO PRN ×3 (02:07→15:02)
[2017-05-26] MEDS: SODIUM CHLOR 0.9% 1000 ML INJ 1,000 ML IV SCH ×2 (04:25→11:33)
[2017-05-26] MEDS: INSULIN ASPART SUPPLEMENTAL SCALE SQ SCH ×2 (07:00→11:32)
[2017-05-26 07:06] LABS: BICARBONATE 32.4 MEQ/L (21.0-32.0); POTASSIUM 4.4 MEQ/L (3.5-5.1)
[2017-05-26 07:07] LABS: HEMATOCRIT 34.1 % (39.0-51.0); MEAN CELL VOLUME 83.2 FL (80.0-100.0); MEAN CORPUSCULAR HEMOGLOBIN 27.5 PG (27.0-34.0); PLATELET COUNT 178 TH/MM3 (150-450); RED CELL DISTRIBUTION WIDTH 16.2 % (11.6-17.2); REVIEW FLAG FINAL; WHITE BLOOD COUNT 6.8 TH/MM3 (4.0-11.0)
[2017-05-26 08:00] VITALS: BP 120/74; PULSE 94; RESP 17; TEMP 98.3; O2SAT 97
[2017-05-26] MEDS: MAGNESIUM HYDROXIDE SUSP 30 ML CUP PO SCH (09:00)
[2017-05-26] MEDS: POLYETHYLENE GLYCOL 17 GM PKG PO SCH (09:00)
[2017-05-26] MEDS: SODIUM CHLORIDE 0.9% FLUSH 5 ML FLUSH IVF SCH (09:00)
[2017-05-26] MEDS: BISACODYL EC 5 MG TABEC PO SCH (09:38)
[2017-05-26] MEDS: DOCUSATE SODIUM 100 MG CAP PO SCH (09:39)
[2017-05-26] MEDS: metFORMIN HCL 500 MG TAB PO SCH ×2 (09:39→11:27)
[2017-05-26] MEDS: MULTIVITAMINS/MINERALS THERAPEUTIC TAB PO SCH (09:39)
--- NOTE | 2017-05-26 09:55 | HHI.PR ---
Subjective Subjective Remarks Had bowel movement Pain well-controlled No chest pain No shortness of breath No fever Review of Systems Constitutional Constitutional Remarks 12 point review of systems completed, negative except as noted above Vitals/Results Vital Signs Vital Signs Date Time Temp Pulse Resp B/P (MAP) Pulse Ox O2 Delivery O2 Flow Rate FiO2 05/26/17 00:00 98.9 79 18 144/69 (94) 98 05/25/17 20:25 100.0 115 18 136/68 (90) 95 05/25/17 16:00 99.0 115 16 156/78 (104) 97 05/25/17 12:00 97.7 100 16 108/60 (76) 95 CBC/BMP: 05/26/17 0601 05/26/17 0601 Lab Results Laboratory Tests Test 05/26/17 06:01 White Blood Count 6.8 TH/MM3 Red Blood Count 4.10 MIL/MM3 Hemoglobin 11.3 GM/DL Hematocrit 34.1 % Mean Corpuscular Volume 83.2 FL Mean Corpuscular Hemoglobin 27.5 PG Mean Corpuscular Hemoglobin Concent 33.0 % Red Cell Distribution Width 16.2 % Platelet Count 178 TH/MM3 Mean Platelet Volume 8.9 FL Blood Urea Nitrogen 13 MG/DL Creatinine 0.64 MG/DL Random Glucose 121 MG/DL Calcium Level 9.1 MG/DL Sodium Level 141 MEQ/L Potassium Level 4.4 MEQ/L Chloride Level 103 MEQ/L Carbon Dioxide Level 32.4 MEQ/L Anion Gap 6 MEQ/L Estimat Glomerular Filtration Rate 124 ML/MIN Physical Exam General General Appearance: Well Developed, Well Nourished, No Acute Distress, Comfortable Eyes Eye Exam: Pupils Equal, Pupils Reactive Ears & Nose Ears & Nose Exam: Nasal Mucosa [place] Throat Throat Exam: Oral Mucosa [place] & Moist Neck Neck Exam: Neck Supple, Trachea Midline Pulmonary Resp Exam: Clear Bilaterally Cardiology CV Exam: Good Perfusion, Tachycardia Gastrointestinal/Abdomen GI Exam: Soft, Non-Tender, Bowel Sounds Present, Non-Distended Musculoskeletal MS Exam: Joints Intact MS Remarks Right knee with dressing dry and intact Integumentary Skin Exam: Warm, Dry Extremeties Extremities Exam: No Edema, Pedal Pulses Palpable Neurologic Neuro Exam: Alert, Awake, Oriented, Speech Clear, Bulldogger Equal Psychiatric Psych Exam: Appropriate Responses VTE Prophylaxis VTE Prophylaxis Device: SCDs VTE Prophylaxis Meds: Lovenox Assessment/Plan Assessment/Plan 1. OA, status post total right knee replacement. 2. Diabetes type 2 on p.o. metformin. 3. History of cardiovascular disease. 4. History of colostomy and diverticulosis with bowel perf. 5. Acute kidney injury with mild dehydration. 6. Anemia, mild. 7. Abdominal pain, now resolved Plan Continue with postoperative orthopedic care Physical therapy Pain management Lovenox for DVT prophylaxis Bowel management had BM Abdominal pain in PACU, patient does not recall Surgery has evaluated, benign findings, has signed off Continue with Accu-Cheks before meals and at bedtime and insulin therapy as needed H&H stable Lovenox for DVT prophylaxis Possible discharge to rehabilitation today Was to go to a facility where his PCP goes Stable for discharge D/W RN D/W Dr. Brush D/W pt D/W CM This patient was seen by myself and Dr. Brush, this note is written on his behalf. Harriett Collier May 26, 2017 09:55
[2017-05-26] MEDS: ENOXAPARIN SODIUM 40 MG/0.4 ML SYRINGE SQ SCH (11:23)
[2017-05-26 12:00] VITALS: BP 114/56; PULSE 89; RESP 17; TEMP 98.3; O2SAT 97
--- NOTE | 2017-05-26 12:27 | PD.ORT.PN ---
Subjective Post Op Day #: 3 Subjective Remarks pain under control. denies abdominal pain, sob, cp. does not remember having abdominal pain post-op. ready to go to snf. Objective Vitals Vital Signs Date Time Temp Pulse Resp B/P (MAP) Pulse Ox O2 Delivery O2 Flow Rate FiO2 05/26/17 08:00 98.3 94 17 120/74 (89) 97 05/26/17 00:00 98.9 79 18 144/69 (94) 98 05/25/17 20:25 100.0 115 18 136/68 (90) 95 05/25/17 16:00 99.0 115 16 156/78 (104) 97 I/O 05/25/17 05/25/17 05/25/17 05/26/17 05/26/17 05/26/17 07:00 15:00 23:00 07:00 15:00 23:00 Intake Total 1960 ml 240 ml 480 ml Output Total 300 ml 300 ml 800 ml Balance 1660 ml -60 ml -320 ml Intake Oral 960 ml 240 ml 480 ml IV Total 1000 ml Output Urine Total 300 ml 300 ml 800 ml # Voids 9 2 # Bowel Movements 0 0 0 Result Diagram: 05/26/17 0601 05/26/17 0601 Objective Remarks in bed, nad dressing c/d/i neg homans nvi Assessment & Plan Ortho Post Op Day #: 3 Problem List: Assessment and Plan s/p R TKA wbat daily dressing changes lovenox d/c planning to snf - cleared today 3008 signed rx in chart post-op abdominal pain - gen surg was consulted and has signed off - neg findings currently no abdominal pain f/up dr. vera 2 weeks Angelito Caldwell May 26, 2017 12:26
--- NOTE | 2017-05-31 13:17 | MD ---
cc: ANALIA JEAN BAPTISTE ADMISSION DATE: 05/23/2017 DISCHARGE DATE: 05/26/2017 ADMISSION DIAGNOSIS Severe degenerative osteoarthritis right knee. DISCHARGE DIAGNOSIS Severe degenerative osteoarthritis right knee. HISTORY OF PRESENT ILLNESS Mr. German is a 67-year-old male who presented to the [facility] for evaluation by Dr. Analia Jean Baptiste regarding his progressive right knee pain. The patient states the pain has been bothering him for several years and is currently unbearable, inhibiting his activities of daily living. He notes he has severe constant aching sensation aggravated by weightbearing activities. He has no alleviating factors at this point in time although in the past she has tried medications, bracing, physical therapy, home exercise program, as well as corticosteroid injection without relief of symptoms. He does have x-ray evidence of severe degenerative osteoarthritis of the right knee. While in the office the patient was counseled on his diagnosis and treatment options, the risks, benefits and indications were all discussed. The patient did elect to proceed with surgical intervention to include a right total knee arthroplasty. DATE OF SURGERY 05/23/2017 PROCEDURE PERFORMED Right total knee arthroplasty. POSTOP After surgery the patient was admitted to [facility] where he received appropriate medical management, pain control, DVT prophylaxis as well as physical therapy. Immediately after surgery the patient was complaining due to the anesthesia of abdominal pain. General Surgery was consulted for which he had a negative examination. The patient currently has no recollection of complaining of abdominal pain and has denied abdominal pain for the rest of his hospital stay. DISCHARGE Once being discharged from the hospital the patient is cleared to go to a retirement facility. He is in stable condition. He may weight-bear as tolerated. He is to receive daily dressing changes and has been instructed on appropriate wound care management. DISCHARGE MEDICATIONS The patient has been provided prescriptions for pain control as well as DVT prophylaxis medication. FOLLOWUP He has also been provided a follow-up appointment in approximately 2 weeks from the date of surgery. The patient has asked appropriate questions which have been answered. The patient will be discharged. Dictated by: Harvinder Caldwell PA-C Analia Jean Baptiste MD JWM/LISA /1:46 PM /1:17 PM
== END 2017-05-26 15:09 | DRG 470 ==
LOC: HSDI 05-23 06:31 → N06B 05-23 18:15
PROVIDERS: ADMIT Orthopaedic Surgery Sports Medicine; ATTEND Orthopaedic Surgery Sports Medicine
PROC: 3E0T3CZ (ICD-10-PCS; 2017-05-23)
PROC: 0SRC0J9 Replacement of Right Knee Joint with Synthetic Substitute, Cemented, Open Approach (ICD-10-PCS; principal; 2017-05-23 09:36)
DX: M17.11 Unilateral primary osteoarthritis, right knee (principal); N17.9 Acute kidney failure, unspecified; E11.9 Type 2 diabetes mellitus without complications; I25.2 Old myocardial infarction; E86.0 Dehydration; I25.10 Atherosclerotic heart disease of native coronary artery without angina pectoris; D64.9 Anemia, unspecified; E78.00 Pure hypercholesterolemia, unspecified; R10.11 Right upper quadrant pain; Z96.652 Presence of left artificial knee joint; Z95.1 Presence of aortocoronary bypass graft; Z79.84 Long term (current) use of oral hypoglycemic drugs
CPT/HCPCS: 71010; 73560; 80048; 82948; 85025; 85027; 86850; 86900; 86901; 93005; 94150; C1776; J0171; J0690; J0735; J1100; J1170; J1580; J1650; J1815; J1885; J2250; J2405; J2710; J2795; J3010; J3370; J7030; J7050; J7120; L1830

== ENCOUNTER → 2017-05-09 | Outpatient (CLI) | payer MEDICARE, OTHER ==
[~2017-05-09] MED LIST changes: +ASPI81CH37 CHEW; +CPMMACHINE; +ENOX40P SQ; +HYDR-3288 PO; +METF1000 PO; +METF500T PO; +WALKER WHEELS/F1 MIS
[2017-05-09 08:53] LABS: BASOPHIL % 0.4 % (0.0-2.0); EOSINOPHIL # 0.3 TH/MM3 (0-0.4); EOSINOPHIL % 3.4 % (0.0-4.0); HEMATOCRIT 40.5 % (39.0-51.0); HEMO FLAGS DIFF FINAL; LYMPH % 28.3 % (9.0-44.0); LYMPHOCYTE # 2.3 TH/MM3 (1.0-4.8); MEAN CORPUSCULAR HEMOGLOBIN 27.8 PG (27.0-34.0); MEAN CORPUSCULAR HGB CONC 34.3 % (32.0-36.0); MONO % 5.4 % (0.0-8.0); NEUT % 62.5 % (16.0-70.0); PLATELET COUNT 184 TH/MM3 (150-450); RED CELL DISTRIBUTION WIDTH 16.9 % (11.6-17.2)
[2017-05-09 09:24] LABS: ANION GAP 10 MEQ/L (5-15); AST (GOT) 12 U/L (15-37); BICARBONATE 26.7 MEQ/L (21.0-32.0); BLOOD UREA NITROGEN 14 MG/DL (7-18); CHLORIDE 105 MEQ/L (98-107); GLUCOSE,FASTING 182 MG/DL (74-99); POTASSIUM 4.2 MEQ/L (3.5-5.1); SODIUM (NA) 142 MEQ/L (136-145)
[2017-05-09 09:27] LABS: ALT (GPT) 19 U/L (12-78); GLOMERULAR FILTRATION RATE 96 ML/MIN (>89); TOTAL BILIRUBIN ADULT 0.4 MG/DL (0.2-1.0)
[2017-05-09 09:28] LABS: ALKALINE PHOSPHATASE 123 U/L (45-117)
[2017-05-09 09:30] LABS: WESTERGREN SEDIMENTATION RATE 10 mm/hr (0-20)
--- NOTE | 2017-05-09 09:30 | RADRPT ---
EXAM DATE/TIME: 05/09/2017 09:24 [facility] COMPARISON: No previous studies available for comparison. INDICATIONS : Evaluate for pneumonia, pneumothorax, or communicable disease. Pre op for total knee. MEDICAL HISTORY : Hypercholesterolemia. Myocardial infarction. Diabetes mellitus type II. SURGICAL HISTORY : CABG. ENCOUNTER: Initial ACUITY: 1 day PAIN SCORE: 0/10 LOCATION: Bilateral chest FINDINGS: PA and lateral views of the chest demonstrate the lungs to be symmetrically aerated without evidence of mass, infiltrate or effusion. Findings of prior CABG with intact median sternotomy wires, surgical clips and coronary osteal rings overlying the cardiac silhouette. Heart size is normal. Osseous stru ctures are intact with multilevel lateral osteophytes indicative of degenerative disc disease. Jenkins us structures are intact. CONCLUSION: 1. Post surgical changes characteristic of prior CABG. 2. No acute cardiopulmonary process. Demetrius Kolb MD on May 09, 2017 at 9:27 Board Certified Radiologist. This report was verified electronically.
[2017-05-09 10:15] LABS: BLOOD, URINE NEG (NEG); GLUCOSE,URINE NEG (NEG); HYALINE CAST, URINE 2 /lpf (RARE); KETONE, URINE NEG (NEG); MUCUS URINE MANY /lpf (OCC); NITRITE,URINE NEG (NEG); SQUAMOUS EPITHELIAL CELL URINE <1 /hpf (0-5); URINE COLOR YELLOW (YELLW/STRAW)
[2017-05-09 10:17] LABS: COMMENT (UR) CULT NOT INDICATED; CULTURE IF INDICATED CULT NOT INDICATED
== END ==
LOC: CPRE 08:18
PROVIDERS: ATTEND Orthopaedic Surgery Sports Medicine
DX: Z01.810 Encounter for preprocedural cardiovascular examination (principal); M25.50 Pain in unspecified joint; M17.11 Unilateral primary osteoarthritis, right knee; Z01.812 Encounter for preprocedural laboratory examination; Z01.818 Encounter for other preprocedural examination; Z79.01 Long term (current) use of anticoagulants
CPT/HCPCS: 36415; 71020; 80053; 81001; 85025; 85610; 85652; 85730